=== PATIENT | female | born 1955 | race African-American/Black ===

== ENCOUNTER 2017-04-23 12:36 | Emergency (ER) | payer OTHER ==
[~2017-04-23 12:36] MED LIST: PRED20TA PO; TRAM50TA PO
[2017-04-23 12:50] VITALS: BP 107/67
[2017-04-23] MEDS ORDERED: 0.9 % SODIUM CHLORIDE 10 ML DISP.SYRIN. IV PRN (13:30)
--- NOTE | 2017-04-23 13:36 | PHYS DOC ---
Past History Past Medical History: Hypertension Past Surgical History: Tubal ligation Smoking: Cigarettes, Greater than 1 pack/day Alcohol Use: None Drug Use: None Adult General Chief Complaint Chief Complaint: ABDOMINAL PAIN HPI HPI Patient is a pleasant 61-year-old female with a history of hypertension on 3 different medications and prior tubal ligation presents with epigastric abdominal pain for last 3 weeks. The pain is described as dull and achy with radiation to the left lower quadrant as well as now pain underneath her breast to the left shoulder. It waxes and wanes but never completely goes away and a presently is 8 of 10. Nothing makes it worse other than laying on the left side. She denies any nausea, vomiting, diarrhea, change with food or breathing. She denies any trauma or prior episodes like this in the past. Her was just released from the hospital for pancreatitis. She does smoke she does not drink alcohol. She denies any fevers, night sweats, chills, UTI symptoms or other symptoms. She comes to been treated for a bacterial infection for last 3 weeks. Review of Systems Review of Systems Constitutional: Denies fever or chills [] Eyes: Denies change in visual acuity, redness, or eye pain [] HENT: Denies nasal congestion or sore throat [] Respiratory: Denies cough or shortness of breath [] Cardiovascular: No additional information not addressed in HPI [] GI: She does complain of abdominal pain without nausea vomiting diarrhea or stool with blood. : Denies dysuria or hematuria [] Musculoskeletal: Denies she does complain of left flank pain with radiation to the left shoulder. Not reproducible on exam or range with movement. Integument: Denies rash or skin lesions [] Neurologic: Denies headache, focal weakness or sensory changes [] Endocrine: Denies polyuria or polydipsia [] Allergies Allergies Allergies Coded Allergies Type Severity Reaction Last Updated Verified cephalexin Allergy Intermediate rash 02/24/16 Yes Physical Exam Physical Exam Constitutional: Well developed, well nourished, no acute distress, non-toxic appearance. [] HENT: Normocephalic, atraumatic, bilateral external ears normal, mucous membranes are dry Eyes: PERRLA, EOMI, conjunctiva normal, no discharge. [] Neck: Normal range of motion, no tenderness, supple, no stridor. [] Cardiovascular:Heart rate regular rhythm, no murmur [] Lungs & Thorax: Bilateral breath sounds clear to auscultation [] Abdomen: Bowel sounds are normal patient has tenderness in the epigastric region with no guarding rebound or organomegaly. There is no pulsatile masses no Dunn Baker sign no Bray's or McBurney's point tenderness to palpation. Skin: Warm, dry, no erythema, no rash. [] Back: No tenderness, no CVA tenderness. [] Extremities: No tenderness, no cyanosis, no clubbing, ROM intact, no edema. [] Neurologic: Alert and oriented X 3, normal motor function, normal sensory function, no focal deficits noted. [] Psychologic: Affect normal, judgement normal, mood normal. [] Current Patient Data Lab Results Laboratory Tests Test 04/23/17 13:50 White Blood Count 6.8 x10^3/uL (4.0-11.0) Red Blood Count 4.31 x10^6/uL (3.50-5.40) Hemoglobin 12.7 g/dL (12.0-15.5) Hematocrit 39.0 % (36.0-47.0) Mean Corpuscular Volume 91 fL (79-100) Mean Corpuscular Hemoglobin 29 pg (25-35) Mean Corpuscular Hemoglobin Concent 33 g/dL (31-37) Red Cell Distribution Width 12.9 % (11.5-14.5) Platelet Count 228 x10^3/uL (140-400) Neutrophils (%) (Auto) 55 % (31-73) Lymphocytes (%) (Auto) 30 % (24-48) Monocytes (%) (Auto) 9 % (0-9) Eosinophils (%) (Auto) 6 % (0-3) H Basophils (%) (Auto) 1 % (0-3) Neutrophils # (Auto) 3.7 x10^3uL (1.8-7.7) Lymphocytes # (Auto) 2.0 x10^3/uL (1.0-4.8) Monocytes # (Auto) 0.6 x10^3/uL (0.0-1.1) Eosinophils # (Auto) 0.4 x10^3/uL (0.0-0.7) Basophils # (Auto) 0.0 x10^3/uL (0.0-0.2) Sodium Level 142 mmol/L (136-145) Potassium Level 3.8 mmol/L (3.5-5.1) Chloride Level 103 mmol/L (98-107) Carbon Dioxide Level 28 mmol/L (21-32) Anion Gap 11 (6-14) Blood Urea Nitrogen 30 mg/dL (7-20) H Creatinine 1.4 mg/dL (0.6-1.0) H Estimated GFR (Cockcroft-Gault) 46.3 BUN/Creatinine Ratio 21 (6-20) H Glucose Level 104 mg/dL (70-99) H Calcium Level 9.5 mg/dL (8.5-10.1) Magnesium Level 2.2 mg/dL (1.8-2.4) Total Bilirubin 0.3 mg/dL (0.2-1.0) Aspartate Amino Transferase (AST) 20 U/L (15-37) Alanine Aminotransferase (ALT) 23 U/L (14-59) Alkaline Phosphatase 129 U/L (46-116) H Creatine Kinase 226 U/L (26-192) H Creatine Kinase MB (Mass) 0.6 ng/mL (0.0-3.6) Creatine Kinase MB Relative Index 0.3 % (0-4) Troponin I Quantitative < 0.017 ng/mL (0-0.055) VE-Ccq-J-Type Natriuretic Peptide 82 pg/mL (0-124) Total Protein 8.3 g/dL (6.4-8.2) H Albumin 3.6 g/dL (3.4-5.0) Albumin/Globulin Ratio 0.8 (1.0-1.7) L Lipase 408 U/L (73-393) H Nursery Laboratory Tests 04/23/17 13:50: White Blood Count 6.8, Red Blood Count 4.31, Hemoglobin 12.7, Hematocrit 39.0, Mean Corpuscular Volume 91, Mean Corpuscular Hemoglobin 29, Mean Corpuscular Hemoglobin Concent 33, Red Cell Distribution Width 12.9, Platelet Count 228, Neutrophils (%) (Auto) 55, Lymphocytes (%) (Auto) 30, Monocytes (%) (Auto) 9, Eosinophils (%) (Auto) 6, Basophils (%) (Auto) 1, Neutrophils # (Auto) 3.7, Lymphocytes # (Auto) 2.0, Monocytes # (Auto) 0.6, Eosinophils # (Auto) 0.4, Basophils # (Auto) 0.0, Sodium Level 142, Potassium Level 3.8, Chloride Level 103, Carbon Dioxide Level 28, Anion Gap 11, Blood Urea Nitrogen 30, Creatinine 1.4, Estimated GFR (Cockcroft-Gault) 46.3, BUN/Creatinine Ratio 21, Glucose Level 104, Calcium Level 9.5, Magnesium Level 2.2, Total Bilirubin 0.3, Aspartate Amino Transf (AST/SGOT) 20, Alanine Aminotransferase (ALT/SGPT) 23, Alkaline Phosphatase 129, Creatine Kinase 226, Creatine Kinase MB (Mass) 0.6, Creatine Kinase MB Relative Index 0.3, Troponin I Quantitative < 0.017, NT-Pro-B -Type Natriuretic Peptide 82, Total Protein 8.3, Albumin 3.6, Albumin/Globulin Ratio 0.8, Lipase 408 EKG EKG [] Patient EKG timed 2:03 PM 04/23/2017 demonstrates normal sinus rhythm nonseptic T-wave abnormality in the anterior leads mild QT prolongation of 474. Otherwise normal looking EKG read by Dr. Echeverria Radiology/Procedures Radiology/Procedures [] [address] [place] [address] IMAGING REPORT Signed PATIENT: ELIEZER PUENTES ACCOUNT: [id number] : 1955 LOCATION: ER AGE: 61 SEX: F EXAM STATUS: REG ER ORD. PHYSICIAN: GRACE ECHEVERRIA MD REASON: epigastric abdominal pain PROCEDURE: CT ABD PELV W/ IV CONTRST ONLY EXAM: CT abdomen/pelvis with contrast. HISTORY: Epigastric pain. TECHNIQUE: Computed tomography of the abdomen and pelvis was performed after the intravenous administration of 60 mL Omnipaque 300. COMPARISON: None. FINDINGS: Lung windows through the visualized portions of the bases reveal moderate centrilobular emphysema and dependent atelectasis. Bone windows reveal no suspicious lesions. There are multiple small uterine fibroids, some of which are degenerated and calcified. The largest measures 2.8 cm. There is moderate bladder wall thickening without a clear focal lesion. The appendix is not inflamed. There is no obstruction. There is mild stenosis within both common iliac arteries. The internal iliac arteries are moderately to severely diseased with multifocal moderate stenosis. There are no pathologically enlarged lymph nodes. The pancreatic duct is mildly dilated at 4 mm. There is no clear obstructing lesion at the ampulla. No pancreatic parenchymal lesion is seen. The common duct is not dilated. Small cysts at the left renal upper pole measure 1 cm. The adrenal glands, spleen, gallbladder and liver are unremarkable. IMPRESSION: 1. Mild dilatation of the pancreatic duct. Correlate for prior pancreatitis. ERCP could assess for ampullary stenosis if there is persistent concern. 2. Multiple uterine fibroids measure up to 2.8 cm. 3. Mild bilateral common iliac and moderate internal iliac stenosis. 4. Moderate centrilobular emphysema. *One or more of the following individualized dose reduction techniques were utilized for this examination: 1. Automated exposure control. 2. Adjustment of the mA and/or kV according to patient size. 3. Use of iterative reconstruction technique. DICTATED AND SIGNED BY: CECILLE BRAXTON MD DATE: 04/23/17 1503 CC: GRACE ECHEVERRIA MD; PCP,NO ~ Course & Med Decision Making Course & Med Decision Making Pertinent Labs and Imaging studies reviewed. (See chart for details) Time 13:42 : Patient tells me that their symptoms given during CC are improved. We reviewed labs family at bedside. At this point CBC is normal pending CMP. Time 1451 : Patient tells me that their symptoms given during CC are improved. Patient over in CT abdomen and pelvis We reviewed labs at this point elevated lipase is noted at 408. Patient's LFTs otherwise normal normal white count. Patient's abdominal pain has improved but a second order pain medications displaced. Medications. Did improve symptoms remarkably. Time now 1541 patient tells me her symptoms are improved markedly her CT abdomen and pelvis demonstrates signs of possible pancreatitis her lipase is 408 and her symptoms of 3 duration with no nausea no vomiting and diarrhea are important note as she is not clinically dehydrated. She does also have a urinalysis that did be considered infected but it is at contaminated with epithelial cells. She has had UTI symptoms I'll treat her empirically while urine cultures pending. The differential diagnosis of pancreatic tightness patient denies any alcoholism or alcohol consumption, denies any history of cholelithiasis and the stone demonstrated on physical exam there is no evidence or history of trauma or just irritation from surgery. Patient may be hyperlipidemic has not been stung by any scorpions and is not taking any medication that might cause pancreatic status. At this point patient abdomen is soft we discussed follow-up with general surgery and GI. Patient feels comfortable willing to go home with oral pain medication for nausea and GI follow-up. Impression: Pancreatic status, abdominal pain, possible UTI Stone appropriate pain medications, antibiotics or medications and antibiotics. Disposition: PCP follow-up in 12-24 hours for GI referral. Dragon Disclaimer Dragon Disclaimer This chart was dictated in whole or in part using Voice Recognition software in a busy, high-work load, and often noisy Emergency Department environment. It may contain unintended and wholly unrecognized errors or omissions. Departure Departure: Impression: Primary Impression: Abdominal pain Additional Impressions: Pancreatitis UTI (urinary tract infection) Disposition: HOME, SELF-CARE Condition: IMPROVED Referrals: PCP,IAN (PCP) Patient Instructions: Abdominal Pain, Acute Pancreatitis, Clear Liquid Diet, Urinary Tract Infection Additional Instructions: This return for any new or increasing symptoms or if you've any questions or concerns. Please return for any increasing pain despite medications. I would advise a follow-up with your PCP immediately. for referral to GI for pancreatic workup. Scripts Phenazopyridine Hcl (PYRIDIUM) 200 Mg Tablet 200 MG PO TID for 5 Days, #15 TAB Prov: GRACE ECHEVERRIA MD 04/23/17 Ondansetron (ZOFRAN ODT) 8 Mg Tab.rapdis 4 MG PO TID for 7 Days Prov: GRACE ECHEVERRIA MD 04/23/17 Hydrocodone Bit/Acetaminophen (HYDROCODONE-APAP 5-325 ) 1 Each Tablet 1 TAB PO PRN Q6HRS Y for PAIN for 7 Days, TAB 0 Refills Prov: GRACE ECHEVERRIA MD 04/23/17 Sulfamethoxazole/Trimethoprim (BACTRIM DS TABLET) 1 Each Tablet 1 TAB PO BID, #20 TAB Prov: GRACE ECHEVERRIA MD 04/23/17 Problem Qualifiers GRACE ECHEVERRIA MD Apr 23, 2017 13:36
[2017-04-23] MEDS ORDERED: HYDROmorphone PF 1 MG/ML DISP.SYRIN IV ONE ×2 (13:45→15:10)
[2017-04-23] MEDS ORDERED: IV NORMAL SALINE 1,000ML 1,000 ML IV SCH (13:45)
[2017-04-23] MEDS ORDERED: ONDANSETRON PF 4 MG/2 ML VIAL. IV ONE (13:45)
[2017-04-23] MEDS ORDERED: IOHEXOL 300 MG/ML 75 ML VIAL. IV ONE (14:00)
[2017-04-23 14:05] LABS: BASO % 1 % (0-3); EOS # 0.4 x10^3/uL (0.0-0.7); EOS % 6 % (0-3); HEMOGLOBIN 12.7 g/dL (12.0-15.5); LYMPH % 30 % (24-48); MEAN CORPUSCULAR HEMOGLOBIN 29 pg (25-35); MEAN CORPUSCULAR HGB CONC 33 g/dL (31-37); MEAN CORPUSCULAR VOLUME 91 fL (79-100); MONO # 0.6 x10^3/uL (0.0-1.1); MONO % 9 % (0-9); NEUT # 3.7 x10^3uL (1.8-7.7); NEUT % 55 % (31-73); PLATELET COUNT 228 x10^3/uL (140-400); RED BLOOD COUNT 4.31 x10^6/uL (3.50-5.40); RED CELL DISTRIBUTION WIDTH 12.9 % (11.5-14.5); WHITE BLOOD COUNT 6.8 x10^3/uL (4.0-11.0)
[2017-04-23 14:29] LABS: ALBUMIN 3.6 g/dL (3.4-5.0); ALBUMIN/GLOBULIN RATIO 0.8 (1.0-1.7); CALCIUM 9.5 mg/dL (8.5-10.1); CREATININE 1.4 mg/dL (0.6-1.0); GFR 46.3; MAGNESIUM 2.2 mg/dL (1.8-2.4); POTASSIUM 3.8 mmol/L (3.5-5.1); TOTAL BILIRUBIN 0.3 mg/dL (0.2-1.0); TOTAL PROTEIN 8.3 g/dL (6.4-8.2)
--- NOTE | 2017-04-23 14:54 | RAD ---
EXAM: Chest 2 views. HISTORY: Cough, abdominal pain. COMPARISON: None. FINDINGS: Frontal and lateral views of the chest are obtained. Hyperinflation is consistent with chronic obstructive pulmonary disease. There are no confluent infiltrates. There is no pneumothorax or pleural effusion. The heart is not enlarged. IMPRESSION: 1. Chronic obstructive pulmonary disease. No confluent infiltrates.
--- NOTE | 2017-04-23 15:11 | RAD ---
EXAM: CT abdomen/pelvis with contrast. HISTORY: Epigastric pain. TECHNIQUE: Computed tomography of the abdomen and pelvis was performed after the intravenous administration of 60 mL Omnipaque 300. COMPARISON: None. FINDINGS: Lung windows through the visualized portions of the bases reveal moderate centrilobular emphysema and dependent atelectasis. Bone windows reveal no suspicious lesions. There are multiple small uterine fibroids, some of which are degenerated and calcified. The largest measures 2.8 cm. There is moderate bladder wall thickening without a clear focal lesion. The appendix is not inflamed. There is no obstruction. There is mild stenosis within both common iliac arteries. The internal iliac arteries are moderately to severely diseased with multifocal moderate stenosis. There are no pathologically enlarged lymph nodes. The pancreatic duct is mildly dilated at 4 mm. There is no clear obstructing lesion at the ampulla. No pancreatic parenchymal lesion is seen. The common duct is not dilated. Small cysts at the left renal upper pole measure 1 cm. The adrenal glands, spleen, gallbladder and liver are unremarkable. IMPRESSION: 1. Mild dilatation of the pancreatic duct. Correlate for prior pancreatitis. ERCP could assess for ampullary stenosis if there is persistent concern. 2. Multiple uterine fibroids measure up to 2.8 cm. 3. Mild bilateral common iliac and moderate internal iliac stenosis. 4. Moderate centrilobular emphysema. *One or more of the following individualized dose reduction techniques were utilized for this examination: 1. Automated exposure control. 2. Adjustment of the mA and/or kV according to patient size. 3. Use of iterative reconstruction technique.
[2017-04-23 15:15] LABS: BILIRUBIN,URINE NEG (NEG); CLARITY,URINE CLOUDY; COLOR,URINE YELLOW; GLUCOSE,URINE NEG (NEG); NITRITE,URINE POS (NEG); UROBILINOGEN,URINE 0.2 mg/dL (0.2 mg/dL)
[2017-04-23 15:16] LABS: BACTERIA,URINE MANY /HPF (0-FEW); SQUAMOUS EPITHELIAL CELL,UR MANY /LPF; WBC,URINE 20-40 /HPF (0-4)
--- NOTE | 2017-04-23 15:19 | EKG ---
[address] [address] Test Date: 2017-04-23 Test Time: 14:03:04 Pat Name: ELIEZER PUENTES Department: Room: Gender: F Mgmt Analyst: : 1955 Requested By: GRACE ECHEVERRIA Order Number: [id number] Reading MD: Jayant August Measurements Intervals [place] Rate: 76 P: 62 TN: 162 QRS: 31 QRSD: 68 T: 62 QT: 422 QTc: 474 Interpretive Statements SINUS RHYTHM NON SPECIFIC T ABNORMALITY PROLONGED QT RI6.01 Unconfirmed report No previous ECG available for comparison Electronically Signed On 04-24-2017 11:06:05 CDT by Jayant August
[2017-04-23] MEDS ORDERED: ONDA8TAB12 PO (15:48)
[2017-04-23] MEDS ORDERED: HYDR-2758 PO (15:48)
[2017-04-23] MEDS ORDERED: PHEN-318 PO (15:48)
[2017-04-23] MEDS ORDERED: SULF1TAB24 PO (15:48)
== END 2017-04-23 15:58 | disposition home or self-care (01) ==
LOC: ER 12:36
DX: K85.90 Acute pancreatitis without necrosis or infection, unspecified (principal); N39.0 Urinary tract infection, site not specified; I10 Essential (primary) hypertension; F17.210 Nicotine dependence, cigarettes, uncomplicated; Z98.51 Tubal ligation status; Z88.1 Allergy status to other antibiotic agents
CPT/HCPCS: 36415; 71020; 74177; 80053; 81001; 82553; 83690; 83735; 83880; 84484; 85027; 87086; 87186; 93005; 96361; 96374; 96375; 96376; 99285; J1170; J2405; Q9967; J7030

== ENCOUNTER → 2019-04-25 | Outpatient (CLI) | payer OTHER ==
[~2019-04-25] MED LIST changes: +HYDR-2155 PO; +ONDA8TAB12 PO; +PHEN-318 PO; +SULF1TAB24 PO
--- NOTE | 2019-05-01 13:12 | RAD ---
DATE: 04/25/2019 EXAM: MAMMO [facility] SCREENING BILATERAL HISTORY: Routine screening COMPARISON: None available This study was interpreted with the benefit of Computerized Aided Detection (CAD). Breast Density: HETERO The breast parenchyma is heterogenously dense, which could reduce sensitivity of mammography. Breast parenchyma level C. FINDINGS: No suspicious breast densities or architectural distortion is seen. There is minimal benign type calcification. No suspicious microcalcifications are evident. IMPRESSION: There is no mammographic evidence of malignancy in either breast. BI-RADS CATEGORY: 1 NEGATIVE RECOMMENDED FOLLOW-UP: 12M 12 MONTH FOLLOW-UP PQRS compliance statement: Patient information was entered into a reminder system with a target due date for the next mammogram. Mammography is a sensitive method for finding small breast cancers, but it does not detect them all and is not a substitute for careful clinical examination. A negative mammogram does not negate a clinically suspicious finding and should not result in delay in biopsying a clinically suspicious abnormality. "Our facility is accredited by the [employer] Mammography Program."
== END | disposition home or self-care (01) ==
LOC: MAMMO 12:56
PROVIDERS: ATTEND Nurse Practitioner Family
DX: Z12.31 Encounter for screening mammogram for malignant neoplasm of breast (principal); N64.89 Other specified disorders of breast
CPT/HCPCS: 77063; 77067

== ENCOUNTER 2020-10-06 17:12 | Emergency (ER) | payer MEDICARE ==
[~2020-10-06] VITALS: Ht 154.9 cm; Wt 55.0 kg
[2020-10-06 17:12] VITALS: BP 115/72
--- NOTE | 2020-10-06 18:25 | RAD ---
EXAM: Left great toe, 3 views. HISTORY: Pain. COMPARISON: None. FINDINGS: 3 views of the left great toe are obtained. There is no fracture, dislocation or subluxation. There is no foreign body. There is no cortical irregularity to suggest osteomyelitis. IMPRESSION: No acute osseous finding. Electronically signed by: Vinita Huitron MD (10/06/2020 6:23 PM) [facility]
[2020-10-06] MEDS ORDERED: HYDR-2155 PO (18:34)
[2020-10-06] MEDS ORDERED: METH4TAB2 PO (18:34)
--- NOTE | 2020-10-06 18:34 | PHYS DOC ---
Past History Past Medical History: Hypertension Additional Past Medical Histor: Chronic kidney disease Past Surgical History: Tubal ligation Smoking: Cigarettes, Greater than 1 pack/day Alcohol Use: None Drug Use: None General Adult EDM: Chief Complaint: TOE PROBLEM HPI: HPI: Patient is a 65-year-old AA female who presents to the emergency department with complaints of pain in her left great toe for the last 3 days. Patient states that her toe feels warm and tender to touch. She denies any known injury. Patient denies any history of gout. She denies any fever, numbness, tingling, or weakness. She currently rates pain 10 out of 10 on pain scale, she denies any alleviating factors, the pain is worse when she ambulates or areas palpated. Review of Systems: Review of Systems: Complete ROS is negative unless otherwise stated in the HPI. Allergies: Allergies: Allergies Coded Allergies Type Severity Reaction Last Updated Verified cephalexin Allergy Intermediate rash 02/24/16 Yes Physical Exam: PE: Constitutional: Well developed, well nourished, no acute distress, non-toxic appearance. [] HENT: Normocephalic, atraumatic, bilateral external ears normal, nose normal. [] Eyes: PERRLA, EOMI, conjunctiva normal, no discharge. [] Neck: Normal range of motion, no stridor. [] Cardiovascular:Heart rate regular rhythm Lungs & Thorax: Respirations even and unlabored, no retractions, no respiratory distress Skin: Warm, dry, no erythema, no rash. [] Extremities: Left foot: Tenderness to palpation of the proximal left great toe, no crepitus, no obvious deformity, area is warm and tender to touch ,no cyanosis, ROM intact, 1+ edema concerning for gout Neurologic: Alert and oriented X 3, no focal deficits noted. [] Psychologic: Affect normal, judgement normal, mood normal. [] EKG: EKG: [] Radiology/Procedures: Radiology/Procedures: PROCEDURE: TOES LEFT EXAM: Left great toe, 3 views. HISTORY: Pain. COMPARISON: None. FINDINGS: 3 views of the left great toe are obtained. There is no fracture, dislocation or subluxation. There is no foreign body. There is no cortical irregularity to suggest osteomyelitis. IMPRESSION: No acute osseous finding. [] Heart Score: Risk Factors: Risk Factors: DM, Current or recent (<one month) smoker, HTN, HLP, family history of CAD, obesity. Risk Scores: Score 0 - 3: 2.5% MACE over next 6 weeks - Discharge Home Score 4 - 6: 20.3% MACE over next 6 weeks - Admit for Clinical Observation Score 7 - 10: 72.7% MACE over next 6 weeks - Early Invasive Strategies Course & Med Decision Making: Course & Med Decision Making Pertinent Labs and Imaging studies reviewed. (See chart for details) [] Dl Disclaimer: Dragon Disclaimer: This electronic medical record was generated, in whole or in part, using a voice recognition dictation system. Departure Departure: Impression: Primary Impression: Gouty arthritis of left great toe Disposition: DC HOME SELF CARE/HOMELESS Condition: STABLE Referrals: CARLOS US (PCP) Patient Instructions: Gout, [id number] Additional Instructions: Fill the prescriptions and use them as directed. Follow-up with your primary care provider in 1 to 2 days. Return to the ER if symptoms worsen. Scripts Hydrocodone Bit/Acetaminophen (HYDROCODONE-APAP 5-325 ) 1 Each Tablet 0.5-1 TAB PO PRN Q6HRS PRN for PAIN for 3 Days, #12 TAB 0 Refills Prov: ARIANE PEREZ [employer]FF[employer] SUPERVISOR 10/06/20 Methylprednisolone (MEDROL) 4 Mg Tab.ds.pk 1 PKG PO UD for inflammation for 6 Days, #1 PKG 0 Refills Prov: ARIANE PEREZ [employer] TRAFF[employer] SUPERVISOR 10/06/20 ARIANE PEREZ [employer] TRAFF[employer] SUPERVISOR Oct 06, 2020 18:34
== END 2020-10-06 18:40 | disposition home or self-care (01) ==
LOC: ER 17:12
DX: M10.9 Gout, unspecified (principal); M79.675 Pain in left toe(s); I12.9 Hypertensive chronic kidney disease with stage 1 through stage 4 chronic kidney disease, or unspecified chronic kidney disease; N18.9 Chronic kidney disease, unspecified; F17.210 Nicotine dependence, cigarettes, uncomplicated; Z88.1 Allergy status to other antibiotic agents
CPT/HCPCS: 73660; 99283

== ENCOUNTER 2020-12-05 00:32 | Emergency (ER) | payer MEDICARE ==
[~2020-12-05] VITALS: Ht 154.9 cm; Wt 55.0 kg
[~2020-12-05 00:32] MED LIST changes: +METH4TAB2 PO
[2020-12-05 00:45] VITALS: BP 125/90
[2020-12-05] MEDS ORDERED: CYCL5TAB PO (00:57)
[2020-12-05] MEDS ORDERED: OXYC-325 PO (00:57)
--- NOTE | 2020-12-05 00:58 | PHYS DOC ---
Past History Past Medical History: Hypertension Additional Past Medical Histor: Chronic kidney disease Past Surgical History: Tubal ligation Smoking: Cigarettes, Greater than 1 pack/day Alcohol Use: None Drug Use: None Adult General Chief Complaint Chief Complaint: Neck Pain HPI HPI Patient is an otherwise healthy 65-year-old female that presents with a chief complaint of back pain. States she has had pain in between and around her left shoulder blade for about 7 to 10 days. States it is dull and achy, and crampy in nature, 7 out of 10 at times. States she has taken some ibuprofen and use it with a heating pad with some relief but it comes back. States she had really had anything like this before. Denies any recent travel, traumas, illnesses, fevers, headache, chest pain, shortness of breath, abdominal pain, nausea, vomiting, dysuria, hematuria or blood in the stool. Denies any numbness/weakness/tingling. States she is otherwise walking normally. States she is eating and drinking normally. States she is making urine and stool normally for her. States she has a primary care physician that she was given a contact on Monday but just wanted some relief. Review of Systems Review of Systems Review of systems otherwise unremarkable except for noted in HPI. Allergies Allergies Allergies Coded Allergies Type Severity Reaction Last Updated Verified cephalexin Allergy Intermediate rash 02/24/16 Yes Physical Exam Physical Exam Constitutional: Well developed, well nourished, no acute distress, non-toxic appearance. [] HENT: Normocephalic, atraumatic, oropharynx moist, no oral exudates Eyes: conjunctiva normal, no discharge. [] Neck: Normal range of motion, no tenderness, supple, no stridor. [] Cardiovascular:Heart rate regular rhythm, no murmur [] Lungs & Thorax: Bilateral breath sounds clear to auscultation [] Abdomen: soft, no tenderness, no masses, no pulsatile masses. [] Skin: Warm, dry, no erythema, no rash. [] Back: Left-sided paraspinal muscle tenderness between inferior left shoulder blade and spine. No midline tenderness, step-offs or deformities. Extremities: No tenderness, no cyanosis, no clubbing, ROM intact, no edema. [] Neurologic: Alert and oriented X 3, normal motor function, normal sensory function, no focal deficits noted. [] Psychologic: Affect normal, judgement normal, mood normal. [] EKG EKG [] Radiology/Procedures Radiology/Procedures [] Heart Score Risk Factors: Risk Factors: DM, Current or recent (<one month) smoker, HTN, HLP, family history of CAD, obesity. Risk Scores: Risk Factors: DM, Current or recent (<one month) smoker, HTN, HLP, family history of CAD, obesity. Course & Med Decision Making Course & Med Decision Making Patient is a 65-year-old female who presents with left upper back muscle tenderness for 7 to 10 days Vital signs not concerning. Physical exam noted above. Patient given Percocet in ED. States she is unable to take NSAIDs. Discussed with patient pain management at home including Tylenol and her prescription pain medicine as well as ice/heat and Lidoderm patches. Given short course of pain medication and muscle relaxers. Advised to use only as needed. Advised to follow-up with primary care physician first thing Monday morning to discuss ED visit and need for further evaluation and treatment. Patient grateful, verbalized understanding and agreed with plan of discharge. [] Dragon Disclaimer Dragon Disclaimer This electronic medical record was generated, in whole or in part, using a voice recognition dictation system. Departure Departure: Impression: Primary Impression: Muscle ache Additional Impression: Muscle cramp Disposition: DC HOME SELF CARE/HOMELESS Condition: GOOD Referrals: CARLOS US (PCP) Patient Instructions: Muscle Cramps, [id number] Additional Instructions: Please read the attached information. As discussed please use your pain and muscle relaxer prescriptions only as needed. You can use Tylenol, ice and/or heat as well as lidocaine patches as needed as well. Please do not exceed 3000 mg of Tylenol daily. If you do take your prescription medicines please do not work, drive, or do anything that takes focus, concentration and could jeopardize you or someone else's safety. Please call your primary care physician first thing in the morning to discuss your ED visit and set up a post ER follow-up visit. Scripts Oxycodone HCl/Acetaminophen (Percocet 5-325 mg Tablet) 1 Each Tablet 1 TAB PO PRN BID PRN for back pain MDD 2 Tablet(s) for 3 Days, #6 TAB 0 Refills Prov: NAY KISER MD 12/05/20 Cyclobenzaprine Hcl (CYCLOBENZAPRINE HCL) 5 Mg Tablet 1 TAB PO BIDAFTMEAL PRN for muscle spasm for 3 Days, #6 TAB Prov: NAY KISER MD 12/05/20 Problem Qualifiers NAY KISER MD Dec 05, 2020 00:58
[2020-12-05] MEDS ORDERED: oxyCODONE/APAP 5/325 1 TAB TABLET PO ONE (01:30)
== END 2020-12-05 01:05 | disposition home or self-care (01) ==
LOC: ER 00:32
DX: M79.18 Myalgia, other site (principal); R25.2 Cramp and spasm; M54.6 Pain in thoracic spine; I12.9 Hypertensive chronic kidney disease with stage 1 through stage 4 chronic kidney disease, or unspecified chronic kidney disease; N18.9 Chronic kidney disease, unspecified; F17.210 Nicotine dependence, cigarettes, uncomplicated; Z88.1 Allergy status to other antibiotic agents
CPT/HCPCS: 99283

== ENCOUNTER 2021-06-05 23:20 | Emergency (ER) | payer MEDICARE ==
[~2021-06-05] VITALS: Ht 154.9 cm; Wt 55.0 kg
[~2021-06-05 23:20] MED LIST changes: +CYCL5TAB PO; +OXYC-325 PO
--- NOTE | 2021-06-06 00:14 | PHYS DOC ---
Past History Past Medical History: Hypertension Additional Past Medical Histor: Chronic kidney disease, GOUT Past Surgical History: Tubal ligation Smoking: Cigarettes, Greater than 1 pack/day Alcohol Use: None Drug Use: None General Adult EDM: Chief Complaint: FOOT INJURY PAIN HPI: HPI: 66-year-old female presents with left medial ankle pain. The patient states that she just started having discomfort on the skin over the medial malleolus. She denies any injury or fall. She may have got an insect bite but does not see any evidence of such. She has had high uric acid in the past. She has a kidney disorder and is not supposed to take NSAIDs. She has no other complaints at this time. Review of Systems: Review of Systems: Constitutional: Denies fever or chills Eyes: Denies change in visual acuity HENT: Denies nasal congestion or sore throat Respiratory: Denies cough or shortness of breath Cardiovascular: Denies chest pain or edema GI: Denies abdominal pain, nausea, vomiting, bloody stools or diarrhea : Denies dysuria Musculoskeletal: Denies back pain or joint pain Integument: Left medial ankle skin discoloration Neurologic: Denies headache, focal weakness or sensory changes Endocrine: Denies polyuria or polydipsia Lymphatic: Denies swollen glands Psychiatric: Denies depression or anxiety Allergies: Allergies: Allergies Coded Allergies Type Severity Reaction Last Updated Verified cephalexin Allergy Intermediate rash 02/24/16 Yes Physical Exam: PE: Constitutional: Well developed, well nourished, no acute distress, non-toxic appearance. [] HENT: Normocephalic, atraumatic, bilateral external ears normal, oropharynx moist, no oral exudates, nose normal. [] Eyes: PERRLA, EOMI, conjunctiva normal, no discharge. [] Neck: Normal range of motion, no tenderness, supple, no stridor. [] Cardiovascular:Heart rate regular rhythm, no murmur [] Lungs & Thorax: Bilateral breath sounds clear to auscultation [] Abdomen: Bowel sounds normal, soft, no tenderness, no masses, no pulsatile masses. [] Skin: Tenderness of the skin of the left medial ankle with slight dark discoloration. [] Back: No tenderness, no CVA tenderness. [] Extremities: No tenderness, no cyanosis, no clubbing, ROM intact, no edema. [] Neurologic: Alert and oriented X 3, normal motor function, normal sensory function, no focal deficits noted. [] Psychologic: Affect normal, judgement normal, mood normal. [] Current Patient Data: Vital Signs: Vital Signs Date Time Temp Pulse Resp B/P (MAP) Pulse Ox O2 Delivery O2 Flow Rate FiO2 06/05/21 23:37 96.6 83 18 113/77 100 Room Air EKG: EKG: [] Radiology/Procedures: Radiology/Procedures: [] Heart Score: C/O Chest Pain: N/A Risk Factors: Risk Factors: DM, Current or recent (<one month) smoker, HTN, HLP, family history of CAD, obesity. Risk Scores: Score 0 - 3: 2.5% MACE over next 6 weeks - Discharge Home Score 4 - 6: 20.3% MACE over next 6 weeks - Admit for Clinical Observation Score 7 - 10: 72.7% MACE over next 6 weeks - Early Invasive Strategies Course & Med Decision Making: Course & Med Decision Making Pertinent Labs and Imaging studies reviewed. (See chart for details) The patient's lactic acid is normal. I have advised hydrocortisone cream for irritation from what is presumably an insect bite. She is stable for discharge at this time. [] Dragon Disclaimer: Dragon Disclaimer: This electronic medical record was generated, in whole or in part, using a voice recognition dictation system. Departure Departure: Impression: Primary Impression: Insect bite Qualified Codes: S90.562A - Insect bite (nonvenomous), left ankle, initial encounter; W57.XXXA - Bitten or stung by nonvenomous insect and other nonvenomous arthropods, initial encounter Disposition: HOME / SELF CARE / HOMELESS Condition: STABLE Referrals: CARLOS US (PCP) Additional Instructions: You can put hydrocortisone 1% cream on your ankle 3 times a day for the next couple days. This should help with your itching and discomfort. FLETCHER STRICKLAND DO Jun 06, 2021 00:14
[2021-06-06 01:25] VITALS: BP 115/76
== END 2021-06-06 01:25 | disposition home or self-care (01) ==
LOC: ER 23:20
DX: S90.562A Insect bite (nonvenomous), left ankle, initial encounter (principal); I10 Essential (primary) hypertension; F17.210 Nicotine dependence, cigarettes, uncomplicated; N18.9 Chronic kidney disease, unspecified; Z88.1 Allergy status to other antibiotic agents; W57.XXXA Bitten or stung by nonvenomous insect and other nonvenomous arthropods, initial encounter; Y93.89 Activity, other specified; Y92.89 Other specified places as the place of occurrence of the external cause; Y99.8 Other external cause status
CPT/HCPCS: 36415; 84550; 99283

== ENCOUNTER → 2021-09-22 | Outpatient (CLI) | payer MEDICARE ==
--- NOTE | 2021-09-22 15:27 | RAD ---
CT LOW DOSE LUNG SCREEN History: Smoking history. Technique: Noncontrast CT of the chest was performed. Coronal and sagittal reconstructions were perfo rmed. Exposure: One or more of the following individualized dose reduction techniques were utilized for thi s examination: 1. Automated exposure control 2. Adjustment of the mA and/or kV according to patient size 3. Use of iterative reconstruction technique. Comparison: None Findings: Chest: No pathologic lymphadenopathy. Mild atheromatous plaque within the aorta and branch vessels. C oronary artery calcifications. No consolidation or pleural effusion. No pneumothorax. Moderate pulmon julieta emphysema. Calcified pulmonary nodules, likely prior granulomatous disease. 2 mm right upper lobe pulmonary nodule or mucous plugging (series 5 image 123). Upper abdomen: The imaged upper abdomen is unremarkable. Bones: No acute osseous abnormality. Impression: 1. Tiny pulmonary nodule. Lung RADS 2. Recommend continued annual low-dose screening chest CT withou t contrast. 2. Coronary artery calcifications. 3. Moderate pulmonary emphysema. Electronically signed by: Maurisio Nuñez DO (09/22/2021 3:25 PM) [facility]
--- NOTE | 2021-09-22 16:01 | RAD ---
EXAM: DUAL ENERGY X-RAY ABSORPTIOMETRY (DEXA). HISTORY: Postmenopausal screening. FINDINGS: The lowest measured T-score is -3.4 in the MR spine, based on a bone mineral density of 0.7 74 g/cm^2. Refer to the worksheets for full detail. No comparison examinations are available. IMPRESSION: 1. Osteoporosis. Bone mineral density yields a T-score of -2.5 or less. Fracture risk is high. 2. FRAX report: Not calculated. METHODOLOGY: Dual energy x-ray absorptiometry was performed to measure bone mineral density. The foll owing analysis is based on the 2019 Official Positions of the International Society for Clinical Dens itometry: Measurements of the hips and the average of L1-L4 are preferred. When the spine and/or hip cannot be feasibly measured or interpreted, or in the setting of hyperparathyroidism, distal radial bone minera l density may be measured. The lumbar spine T-score is based on the average bone mineral density of L1-L4. In the setting of art ifact or anatomic abnormality, some lumbar levels may be excluded, and the remaining levels used for calculation. A single lumbar level is not used for diagnosis, and if only a single level is available for assessment, another anatomic site will be used to assign a diagnosis. The hip T-score is based on the bone mineral density measurement of the femoral neck or total proxima l femur of either side, whichever is lowest. Bilateral mean values are not used for diagnosis. The forearm T-score is derived from 33% of the distal radius of the nondominant forearm. Electronically signed by: Vinita Huitron MD (09/22/2021 3:58 PM) [id number]
--- NOTE | 2021-09-22 17:36 | RAD ---
Bilateral digital screening 2-D and 3-D (tomosynthesis) mammogram: Reason for examination: Routine screening. Comparison is made to previous study dated 04/25/2019. Bilateral mammograms in CC and oblique projections were obtained with 2-D imaging and 3-D tomosynthes is imaging and reviewed on the workstation. Interpretation was made with the benefit of CAD. Findings: Breast density: Category C. The breasts are heterogeneously dense, which may obscure small masses. There are no suspicious masses, malignant appearing calcifications or architectural distortion. Impression: No evidence of malignancy. ASSESSMENT: BI-RADS 1. Recommendations: Routine screening mammograms. This patient's information has been entered into a reminder system for the patient to be notified wit h the results of her examination and a target date for the next mammogram. Your patient's mammogram demonstrates that she has dense breast tissue (breast density category C or D), which could hide abnormalities, and if she has other risk factors for breast cancer that have bee n identified, she might benefit from supplemental screening tests that may be suggested by you as her ordering physician. Dense breast tissue, in and of itself, is a relatively common condition. Therefo re, this information is not provided to cause undue concern, but rather to raise your awareness and t o promote discussion with your patient regarding the presence of other risk factors, in addition to d ense breast tissue. Electronically signed by: Mary Lou Ceja MD (09/22/2021 5:33 PM) [id number]
== END ==
LOC: CT 13:50
PROVIDERS: ATTEND Family Medicine
DX: Z12.31 Encounter for screening mammogram for malignant neoplasm of breast (principal); Z12.2 Encounter for screening for malignant neoplasm of respiratory organs; M81.0 Age-related osteoporosis without current pathological fracture; I25.10 Atherosclerotic heart disease of native coronary artery without angina pectoris; J43.9 Emphysema, unspecified; R91.8 Other nonspecific abnormal finding of lung field; I70.0 Atherosclerosis of aorta; Z87.891 Personal history of nicotine dependence
CPT/HCPCS: 71271; 77063; 77067; 77080

== ENCOUNTER 2021-10-31 07:22 | Emergency (ER) | payer MEDICARE ==
[~2021-10-31] VITALS: Ht 154.9 cm; Wt 51.9 kg
--- NOTE | 2021-10-31 07:40 | PHYS DOC ---
Past History Past Medical History: Hypertension Additional Past Medical Histor: Chronic kidney disease, GOUT Past Surgical History: Tubal ligation Smoking: Cigarettes, Greater than 1 pack/day Alcohol Use: None Drug Use: None Adult General Chief Complaint Chief Complaint: CHEST PAIN HPI HPI Patient is a 66-year-old female presenting for abdominal pain. Onset was 3 to 4 days ago without any known inciting event, trauma, ingestion, mechanism of injury or exposure. Nothing known makes better or worse. Patient reports pain is located around epigastric area and radiates down to right lower quadrant. Timing of symptoms has waxed and waned since onset. She reports it is sharp and knifelike, is 7/10 in severity at present. Patient reports that after waking up this morning pain had been more constant than usual prompting her to come in for evaluation. She has history of high blood pressure for which she takes medicati ons, no other known medical issues or prior abdominal surgeries. She admits to tobacco use and marijuana use, no other illicit drugs or alcohol use. She is fully vaccinated against COVID-19, denies any other known immunocompromising conditions Review of Systems Review of Systems Fourteen body systems of review of systems have been reviewed. See HPI for pertinent positives and negative responses, other carlson all other systems are negative, non-pertinent or non-contributory Allergies Allergies Allergies Coded Allergies Type Severity Reaction Last Updated Verified cephalexin Allergy Intermediate rash 02/24/16 Yes Physical Exam Physical Exam Constitutional: Well developed, well nourished, no acute distress, non-toxic appearance. HENT: Normocephalic, atraumatic, bilateral external ears normal, oropharynx moist, no oral exudates, nose normal. Eyes: PERRLA, EOMI, conjunctiva normal, no discharge. Neck: Normal range of motion, no tenderness, supple, no stridor. Cardiovascular: Heart rate regular, sinus rhythm, no murmurs rubs or gallops Lungs & Thorax: Bilateral breath sounds clear to auscultation Abdomen: Bowel sounds normal, soft, epigastric tenderness with palpation without guarding or rebound, no masses, no pulsatile masses. Nonsurgical abdomen, no peritoneal signs Skin: Warm, dry, no erythema, no rash. Back: No tenderness, no CVA tenderness. Extremities: No tenderness, no cyanosis, no clubbing, ROM intact, no edema. Neurologic: Alert and oriented X 3, grossly normal motor & sensory function, no focal deficits noted. Psychologic: Affect normal, judgement normal, mood normal. Current Patient Data Vital Signs Vital Signs Date Time Temp Pulse Resp B/P (MAP) Pulse Ox O2 Delivery O2 Flow Rate FiO2 10/31/21 07:22 98.0 68 16 133/79 (97) 100 Room Air Lab Results Laboratory Tests Test 10/31/21 07:30 White Blood Count 5.4 x10^3/uL Red Blood Count 4.39 x10^6/uL Hemoglobin 13.7 g/dL Hematocrit 41.5 % Mean Corpuscular Volume 94 fL Mean Corpuscular Hemoglobin 31 pg Mean Corpuscular Hemoglobin Concent 33 g/dL Red Cell Distribution Width 14.5 % Platelet Count 183 x10^3/uL Neutrophils (%) (Auto) 55 % Lymphocytes (%) (Auto) 28 % Monocytes (%) (Auto) 12 % Eosinophils (%) (Auto) 4 % Basophils (%) (Auto) 0 % Neutrophils # (Auto) 3.0 x10^3uL Lymphocytes # (Auto) 1.5 x10^3/uL Monocytes # (Auto) 0.7 x10^3/uL Eosinophils # (Auto) 0.2 x10^3/uL Basophils # (Auto) 0.0 x10^3/uL Sodium Level 141 mmol/L Potassium Level 3.9 mmol/L Chloride Level 106 mmol/L Carbon Dioxide Level 25 mmol/L Anion Gap 10 Blood Urea Nitrogen 19 mg/dL Creatinine 1.2 mg/dL Estimated GFR (Cockcroft-Gault) 54.4 BUN/Creatinine Ratio 16 Glucose Level 108 mg/dL Calcium Level 9.1 mg/dL Total Bilirubin 0.4 mg/dL Aspartate Amino Transf (AST/SGOT) 19 U/L Alanine Aminotransferase (ALT/SGPT) 20 U/L Alkaline Phosphatase 139 U/L Troponin I High Sensitivity 10 ng/L Total Protein 7.5 g/dL Albumin 4.1 g/dL Albumin/Globulin Ratio 1.2 Lipase 210 U/L Current Medications Medications (Trade) Dose Ordered Sig/Oren Route PRN Reason Start Time Stop Time Status Last Admin Dose Admin Multi-Ingredient Mouthwash/Gargle (Gi Cocktail) 20 ml 1X ONCE PO 10/31/21 08:00 10/31/21 08:01 DC 10/31/21 08:35 Iohexol (Omnipaque 300 Mg/ml) 75 ml 1X ONCE IV 10/31/21 08:15 10/31/21 08:18 DC 10/31/21 08:43 EKG EKG EKG ordered and interpreted by myself at 0740 hrs. as sinus rhythm at 70 bpm, unremarkable intervals, no axis deviation, nonspecific T wave abnormality noted in leads V3 through V5, no STEMI Radiology/Procedures Radiology/Procedures XR CHEST 1V Clinical History: Reason: epigastric pain / Spl. Instructions: HX SMOKER X 40 + YRS / History: Technique: AP view of the chest was obtained at 10/31/2021 8:15 AM. Comparison: April 23, 2017. Findings: The cardiomediastinal silhouette is normal. The pulmonary vasculature is normal. There is blunting of both costophrenic angle and there is vague patchy opacities in the periphery of the lungs. Impression: 1. Mild left effusion. 2. Minimal interstitial markings could be chronic pleural fibrosis or early atypical pneumonia. Electronically signed by: Tyler Murillo III, MD (10/31/2021 8:45 AM) [facility] /////////////////// XR CHEST 1V Clinical History: Reason: epigastric pain / Spl. Instructions: HX SMOKER X 40 + YRS / History: Technique: AP view of the chest was obtained at 10/31/2021 8:15 AM. Comparison: April 23, 2017. Findings: The cardiomediastinal silhouette is normal. The pulmonary vasculature is normal. There is blunting of both costophrenic angle and there is vague patchy opacities in the periphery of the lungs. Impression: 1. Mild left effusion. 2. Minimal interstitial markings could be chronic pleural fibrosis or early atypical pneumonia. Electronically signed by: Tyler Murillo III, MD (10/31/2021 8:45 AM) [facility] Heart Score C/O Chest Pain: Yes HEART Score for Chest Pain: HEART Score for Chest Pain Response (Comments) Value ECG Nonspecific Repolarizatio 1 Age > 65 2 Risk Factors 1 or 2 Risk Factors 1 Troponin < Normal Limit 0 Total 4 Risk Factors: Risk Factors: DM, Current or recent (<one month) smoker, HTN, HLP, family history of CAD, obesity. Risk Scores: Risk Factors: DM, Current or recent (<one month) smoker, HTN, HLP, family history of CAD, obesity. Course & Med Decision Making Course & Med Decision Making ABCs unremarkable HPI physical exam comprehensive ER work-up nonconcerning for any emergent or surgical issues I disclosed entirety of results with patient and at bedside with good understanding. Patient symptoms improved with GI cocktail. I discussed generalized GERD versus constipation as likely diagnoses with supportive care practices advised and close PCP follow-up I also disclosed this might be an acute presentation of more concerning pathology but at present no indication for further diagnostic work-up, intervention or need for hospitalization at this time Dragon Disclaimer Dragon Disclaimer This electronic medical record was generated, in whole or in part, using a voice recognition dictation system. Departure Departure: Impression: Primary Impression: Nonspecific abdominal pain Disposition: HOME / SELF CARE / HOMELESS Condition: STABLE Referrals: CARLOS US (PCP) Additional Instructions: You have been evaluated in the Emergency Department today for abdominal pain. Your evaluation was not suggestive of any emergent condition requiring medical intervention at this time. However, some abdominal problems make take more time to appear. Therefore, it is important for you to watch for any new symptoms or worsening of your current condition. As disclosed, it is advised to contact your primary care physician first thing in the morning to review ER visit today and need for close outpatient follow-up. Please continue supportive care practices such as daily fiber, exercise, and stool softener use Return to the Emergency Department if you experience worsening pain, persistent fevers greater than 100.4, recurrent vomiting, blood in vomit, blood in stool, dark tarry stool, chest pain, difficulty breathing, or any other concerning symptoms. CLIFFORD MONTILLA DO Oct 31, 2021 07:40
--- NOTE | 2021-10-31 07:57 | EKG ---
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
[2021-10-31] MEDS ORDERED: LIDO:MAALOX 1:1 20 ML SINGLE DOSE. PO ONE (08:00)
[2021-10-31] MEDS ORDERED: IOHEXOL 300 MG/ML 75 ML VIAL. IV ONE (08:15)
[2021-10-31 08:21] LABS: BASO % 0 % (0-3); EOS # 0.2 x10^3/uL (0.0-0.7); EOS % 4 % (0-3); HEMATOCRIT 41.5 % (36.0-47.0); HEMOGLOBIN 13.7 g/dL (12.0-15.5); LYMPH # 1.5 x10^3/uL (1.0-4.8); LYMPH % 28 % (24-48); MEAN CORPUSCULAR HEMOGLOBIN 31 pg (25-35); MEAN CORPUSCULAR HGB CONC 33 g/dL (31-37); MEAN CORPUSCULAR VOLUME 94 fL (79-100); MONO # 0.7 x10^3/uL (0.0-1.1); MONO % 12 % (0-9); NEUT % 55 % (31-73); PLATELET COUNT 183 x10^3/uL (140-400); RED BLOOD COUNT 4.39 x10^6/uL (3.50-5.40); RED CELL DISTRIBUTION WIDTH 14.5 % (11.5-14.5); WHITE BLOOD COUNT 5.4 x10^3/uL (4.0-11.0)
[2021-10-31 08:32] LABS: CALCIUM 9.1 mg/dL (8.5-10.1); CREATININE 1.2 mg/dL (0.6-1.0); GFR 54.4; POTASSIUM 3.9 mmol/L (3.5-5.1)
[2021-10-31 08:37] LABS: ALBUMIN 4.1 g/dL (3.4-5.0); ALBUMIN/GLOBULIN RATIO 1.2 (1.0-1.7); TOTAL BILIRUBIN 0.4 mg/dL (0.2-1.0); TOTAL PROTEIN 7.5 g/dL (6.4-8.2)
--- NOTE | 2021-10-31 08:47 | RAD ---
XR CHEST 1V Clinical History: Reason: epigastric pain / Spl. Instructions: HX SMOKER X 40 + YRS / History: Technique: AP view of the chest was obtained at 10/31/2021 8:15 AM. Comparison: April 23, 2017. Findings: The cardiomediastinal silhouette is normal. The pulmonary vasculature is normal. There is blunting of both costophrenic angle and there is vague patchy opacities in the periphery of the lungs. Impression: 1. Mild left effusion. 2. Minimal interstitial markings could be chronic pleural fibrosis or early atypical pneumonia. Electronically signed by: Tyler Murillo III, MD (10/31/2021 8:45 AM) [facility]
[2021-10-31 09:00] VITALS: BP 108/60
--- NOTE | 2021-10-31 09:03 | RAD ---
CT OF THE ABDOMEN AND PELVIS WITH IV CONTRAST. History: Reason: epigastric radiating to RLQ pain Comparison:None. Procedure: Contiguous axial images of the abdomen and pelvis were performed after the administration of 60 cc o f Omni 300 IV contrast. Oral contrast: No. Findings: The appendix is normal. The gallbladder is not fully distended but appears normal. Liver: Unremarkable Spleen: Unremarkable Pancreas: Unremarkable Adrenal Glands: Unremarkable Kidneys: Small cyst on the left There is no mass or lymphadenopathy. There is no free air. There is no free fluid. The urinary bladder appears normal. There is multiple calcified fibroids in the uterus. Impression: No acute findings. End Impression PQRS Compliance Statement: One or more of the following individualized dose reduction techniques were utilized for this examinat ion: 1. Automated exposure control 2. Adjustment of the mA and/or kV according to patient size 3. Use of iterative reconstruction technique Electronically signed by: Tyler Murillo III, MD (10/31/2021 9:01 AM) [facility]
[2021-10-31 10:37] LABS: BARBITURATES NEG (NEG); BENZODIAZEPINES NEG (NEG); CANNABINOIDS POS (NEG); COCAINE NEG (NEG); METHADONE NEG (NEG); OPIATES NEG (NEG); PHENCYCLIDINE NEG (NEG)
[2021-10-31 10:44] LABS: AMPHETAMINE/METHAMPHETAMINE NEG (NEG)
[2021-10-31 10:50] LABS: BACTERIA,URINE 0 /HPF (0-FEW); BILIRUBIN,URINE NEG (NEG); CLARITY,URINE CLEAR; COLOR,URINE STRAW; GLUCOSE,URINE NEG (NEG); NITRITE,URINE NEG (NEG); RBC,URINE OCC /HPF (0-2); SQUAMOUS EPITHELIAL CELL,UR MOD /LPF; UROBILINOGEN,URINE 0.2 mg/dL (0.2 mg/dL); WBC,URINE OCC /HPF (0-4); YEAST,URINE PRESENT /HPF
== END 2021-10-31 10:15 | disposition home or self-care (01) ==
LOC: ER 07:22
DX: R10.13 Epigastric pain (principal); I12.9 Hypertensive chronic kidney disease with stage 1 through stage 4 chronic kidney disease, or unspecified chronic kidney disease; N18.9 Chronic kidney disease, unspecified; F17.210 Nicotine dependence, cigarettes, uncomplicated; Z98.51 Tubal ligation status; Z88.1 Allergy status to other antibiotic agents
CPT/HCPCS: 36415; 71045; 74177; 80053; 80307; 81001; 83690; 84484; 85025; 93005; 99285; Q9967

== ENCOUNTER 2022-01-12 07:48 | Emergency (ER) | payer MEDICARE ==
[~2022-01-12] VITALS: Ht 154.9 cm; Wt 53.2 kg
[2022-01-12 07:56] VITALS: BP 130/72
[2022-01-12] MEDS ORDERED: PRED50TA PO (08:12)
--- NOTE | 2022-01-12 08:12 | PHYS DOC ---
Past History Past Medical History: Hypertension Additional Past Medical Histor: Chronic kidney disease, GOUT Past Surgical History: Tubal ligation Additional Past Surgical Histo: jaw fx Smoking: Cigarettes, Greater than 1 pack/day Alcohol Use: None Drug Use: None General Adult EDM: Chief Complaint: SKIN RASH/ABSCESS HPI: HPI: 66-year-old female presents with rash. She started to notice little bumps on her arms and then she noticed them on her legs. They are pruritic. She started to have pruritus of her back and abdomen. She believes she has seen 1 or 2 spots on her abdomen. She has no known allergies except for Keflex. No new exposures or change in medications or cosmetics. She does not have any idea what he could be allergic to. She is having no difficulty breathing or swallowing. She has no other complaints at this time. Review of Systems: Review of Systems: Constitutional: Denies fever or chills Eyes: Denies change in visual acuity HENT: Denies nasal congestion or sore throat Respiratory: Denies cough or shortness of breath Cardiovascular: Denies chest pain or edema GI: Denies abdominal pain, nausea, vomiting, bloody stools or diarrhea : Denies dysuria Musculoskeletal: Denies back pain or joint pain Integument: Rash Neurologic: Denies headache, focal weakness or sensory changes Endocrine: Denies polyuria or polydipsia Lymphatic: Denies swollen glands Psychiatric: Denies depression or anxiety Allergies: Allergies: Allergies Coded Allergies Type Severity Reaction Last Updated Verified cephalexin Allergy Intermediate rash 02/24/16 Yes Physical Exam: PE: Constitutional: Well developed, well nourished, no acute distress, non-toxic appearance. [] HENT: Normocephalic, atraumatic, bilateral external ears normal, oropharynx moist, no oral exudates, nose normal. [] Eyes: PERRLA, EOMI, conjunctiva normal, no discharge. [] Neck: Normal range of motion, no tenderness, supple, no stridor. [] Cardiovascular: Heart rate regular rhythm, no murmur [] Lungs & Thorax: Bilateral breath sounds clear to auscultation [] Abdomen: Bowel sounds normal, soft, no tenderness, no masses, no pulsatile masses. [] Skin: Scattered mildly erythematous papules of the bilateral upper and lower extremities [] Back: No tenderness, no CVA tenderness. [] Extremities: No tenderness, no cyanosis, no clubbing, ROM intact, no edema. [] Neurologic: Alert and oriented X 3, normal motor function, normal sensory function, no focal deficits noted. [] Psychologic: Affect normal, judgement normal, mood normal. [] Current Patient Data: Vital Signs: Vital Signs Date Time Temp Pulse Resp B/P (MAP) Pulse Ox O2 Delivery O2 Flow Rate FiO2 01/12/22 07:56 97.7 92 16 130/72 (91) 97 Room Air EKG: EKG: [] Radiology/Procedures: Radiology/Procedures: [] Heart Score: C/O Chest Pain: N/A Risk Factors: Risk Factors: DM, Current or recent (<one month) smoker, HTN, HLP, family history of CAD, obesity. Risk Scores: Score 0 - 3: 2.5% MACE over next 6 weeks - Discharge Home Score 4 - 6: 20.3% MACE over next 6 weeks - Admit for Clinical Observation Score 7 - 10: 72.7% MACE over next 6 weeks - Early Invasive Strategies Course & Med Decision Making: Course & Med Decision Making Pertinent Labs and Imaging studies reviewed. (See chart for details) The patient appears to be having a scattered allergic reaction to something. She is having no difficulty swallowing or breathing. This appears to be some sort of topical reaction. I will place her on prednisone for 5 days. We will give the first dose in the emergency room. She is stable for discharge at this time. [] Ayeshaon Disclaimer: Dragon Disclaimer: This electronic medical record was generated, in whole or in part, using a voice recognition dictation system. Departure Departure: Impression: Primary Impression: Allergic reaction Disposition: HOME / SELF CARE / HOMELESS Condition: STABLE Referrals: CARLOS US (PCP) Patient Instructions: Allergy Skin Testing Scripts Prednisone (PREDNISONE) 50 Mg Tablet 1 TAB PO DAILY for skin rash, #5 TAB Prov: FLETCHER STRICKLAND DO 01/12/22 FLETCHER STRICKLAND DO Jan 12, 2022 08:12
[2022-01-12] MEDS ORDERED: predniSONE 20 MG TABLET PO ONE (08:15)
== END 2022-01-12 08:24 | disposition home or self-care (01) ==
LOC: ER 07:48
DX: T78.40XA Allergy, unspecified, initial encounter (principal); I12.9 Hypertensive chronic kidney disease with stage 1 through stage 4 chronic kidney disease, or unspecified chronic kidney disease; N18.9 Chronic kidney disease, unspecified; F17.210 Nicotine dependence, cigarettes, uncomplicated; Z88.1 Allergy status to other antibiotic agents; X58.XXXA Exposure to other specified factors, initial encounter
CPT/HCPCS: 99283; J7512

== ENCOUNTER 2022-01-21 20:25 | Emergency (ER) | payer MEDICARE ==
[~2022-01-21] VITALS: Ht 154.9 cm; Wt 54.0 kg
[~2022-01-21 20:25] MED LIST changes: +PRED50TA PO
[2022-01-21 20:42] VITALS: BP 138/82
[2022-01-21] MEDS ORDERED: ACETAMINOPHEN 500 MG TABLET PO ONE (21:30)
--- NOTE | 2022-01-21 21:35 | PHYS DOC ---
Past History Past Medical History: Hypertension Additional Past Medical Histor: Chronic kidney disease, GOUT (FRANCISCO BYRNE) Past Surgical History: Tubal ligation, Other Additional Past Surgical Histo: jaw fx (FRANCISCO BYRNE) Smoking: Cigarettes, Greater than 1 pack/day Alcohol Use: None Drug Use: None (FRANCISCO BYRNE) General Adult EDM: Chief Complaint: RECTAL BLEED HPI: HPI: Patient is a 66 year old female who presents with bright red blood on toilet tissue after bowel movements. Patient reports associated rectal pain as well as generalized body aches. Patient states that she has had to strain more than usual the past few days in order to pass bowel movements. She denies out right constipation. Patient also denies blood in the toilet bowl, abdominal pain, diarrhea, nausea, vomiting. (FRANCISCO BYRNE) Review of Systems: Review of Systems: Constitutional: Denies fever, chills or generalized weakness Eyes: Denies change in visual acuity, visual field deficits or discharge HENT: Denies ear pain, nasal congestion or sore throat Respiratory: Denies cough or shortness of breath Cardiovascular: Denies chest pain, palpitations or edema GI: See HPI : Denies dysuria or hematuria Musculoskeletal: See HPI Integument: Denies rash or other skin lesion Neurologic: Denies headache, focal weakness or sensory changes (FRANCISCO BYRNE) Current Medications: Current Meds: Current Medications Medications (Trade) Dose Ordered Sig/Oren Start Time Stop Time Status Last Admin Dose Admin Acetaminophen (Tylenol) 1,000 mg 1X ONCE 01/21/22 21:30 01/21/22 21:31 DC (FRANCISCO BYRNE) Allergies: Allergies: Allergies Coded Allergies Type Severity Reaction Last Updated Verified cephalexin Allergy Intermediate rash 02/24/16 Yes (FRANCISCO BYRNE) Physical Exam: PE: Constitutional: Well developed, well nourished, no acute distress, non-toxic appearance. HENT: Normocephalic, atraumatic, bilateral external ears normal, nose normal. Eyes: EOMI, conjunctiva normal, no discharge. Neck: Normal range of motion, no tenderness, supple, no stridor. Rectal: Nonthrombosed external hemorrhoid appreciated at 06:00 without lacho blood, rectal tone intact, no internal hemorrhoids or other masses in the rectal vault appreciated, no impacted stool in rectum. Skin: Warm, dry, no erythema, no rash. Extremities: No cyanosis, no clubbing, ROM intact, no edema. Neurologic: Alert and oriented x4, normal motor function, normal sensory function, no focal deficits noted. (FRANCISCO BYRNE) Current Patient Data: Vital Signs: Vital Signs Date Time Temp Pulse Resp B/P (MAP) Pulse Ox O2 Delivery O2 Flow Rate FiO2 01/21/22 20:42 99.0 115 18 138/82 (100) 99 Room Air (FRANCISCO BYRNE) Heart Score: C/O Chest Pain: No (FRANCISCO BYRNE) Course & Med Decision Making: Course & Med Decision Making Pertinent Labs and Imaging studies reviewed. (See chart for details) (FRANCISCO BYRNE) Course & Med Decision Making Did not see or evaluate patient. Did not discuss patient with PA. Generally agree with PAs work-up and disposition per note (NAY KISER MD) Dragon Disclaimer: Dragon Disclaimer: This electronic medical record was generated, in whole or in part, using a voice recognition dictation system. (FRANCISCO BYRNE) Departure Departure: Impression: Primary Impression: External hemorrhoid Additional Impression: Straining during bowel movements Disposition: 01 HOME / SELF CARE / HOMELESS Condition: STABLE Referrals: CARLOS US (PCP) Patient Instructions: Hemorrhoids, [id number] Additional Instructions: EMERGENCY DEPARTMENT GENERAL DISCHARGE INSTRUCTIONS Thank you for coming to [facility] (ED) today and trusting us with you care. We trust that you had a positive experience in our Emergency Department. If you wish to speak to the department management, you may call the director at [phone]. YOUR FOLLOW UP INSTRUCTIONS ARE FOLLOWS: 1. Follow up with your primary care doctor. If you do not have a primary doctor, please ask for a resource list of physicians or clinics that may be able to assist you with follow up care. 2. The emergency provider has interpreted your imaging studies, if any were ordered. The radiology event specialist product demonstrator also reviewed them. If there is a change in the findings, you will be notified in 48 hours when at all possible. 3. If a lab test or culture has been done, your results will be reviewed and you will be notified if you need a change in treatment. 4. Follow instructions verbalized to you and refer to the printouts if needed. - Take MiraLax (or generic) daily to soften stool. - Avoid straining to pass BM. If you have to push too hard, stop & take an additional dose of MiraLax. - Tylenol per box instruction for body aches. ADDITIONAL INSTRUCTIONS AND INFORMATION: 1. Your care today has been supervised by a physician who is specially trained in emergency care. Many problems require more than one evaluation for a complete diagnosis and treatment. We recommend that you schedule your follow up appointment as recommended to ensure complete treatment of you illness or injury. If you are unable to obtain follow up care and continue to have a problem, or if your condition worsens, we recommend that you return to the ED. 2. We are not able to safely determine your condition over the phone nor are we able to give sound medical advice over the phone. For these safety reasons, if you call for medical advice we will ask you to come to the ED for further evaluation. 3. If you have any questions regarding these discharge instructions please call the ED at [phone]. SAFETY INFORMATION: In the interest of safety, wellness, and injury prevention; we encourage you to wear your seat belt, if you smoke; quite smoking, and we encourage family to use a protective helmet for bicycling and other sporting events that present an increased risk for head injury. IF YOUR SYMPTOMS WORSEN OR NEW SYMPTOMS DEVELOP, OR YOU HAVE CONCERNS ABOUT YOUR CONDITION; OR IF YOUR CONDITION WORSENS WHILE YOU ARE WAITING FOR YOUR FOLLOW UP APPOINTMENT; EITHER CONTACT YOUR PRIMARY CARE DOCTOR, THE PHYSICIAN WHOSE NAME AND NUMBER YOU WERE GIVEN, OR RETURN TO THE ED IMMEDIATELY. FRANCISCO BYRNE Jan 21, 2022 21:35 NAY KISER MD Jan 22, 2022 19:18
== END 2022-01-21 21:43 | disposition home or self-care (01) ==
LOC: ER 20:25
DX: K64.4 Residual hemorrhoidal skin tags (principal); I12.9 Hypertensive chronic kidney disease with stage 1 through stage 4 chronic kidney disease, or unspecified chronic kidney disease; N18.9 Chronic kidney disease, unspecified; F17.210 Nicotine dependence, cigarettes, uncomplicated; Z88.1 Allergy status to other antibiotic agents
CPT/HCPCS: 99282

== ENCOUNTER → 2022-03-14 | Outpatient (CLI) | payer MEDICARE ==
--- NOTE | 2022-03-14 13:44 | RAD ---
EXAM: Renal sonogram. HISTORY: Renal insufficiency. TECHNIQUE: Sonographic imaging the kidneys and bladder was performed. COMPARISON: CT dated 10/31/2021. FINDINGS: The right kidney measures 8.8 cm [id number]. The left kidney measures 8.5 cm [id number] . There is no hydronephrosis. There is a simple cyst within the upper pole the right kidney measuring 1.1 cm. There is a simple cyst within the upper pole the left kidney measuring 1.6 cm. No solid jesus l lesion is seen. The bladder is unremarkable. IMPRESSION: 1. Mild bilateral renal atrophy. 2. Small simple bilateral renal cysts. Follow-up is not routinely performed for simple cysts. Electronically signed by: Vinita Huitron MD (03/14/2022 1:42 PM) [id number]
== END ==
LOC: US 12:53
PROVIDERS: ATTEND Family Medicine
DX: N28.1 Cyst of kidney, acquired (principal); N18.32 Chronic kidney disease, stage 3b; N26.1 Atrophy of kidney (terminal)
CPT/HCPCS: 76770